=== PATIENT | female | born 1940 | race Caucasian/White ===

== ENCOUNTER 2017-01-29 11:54 | Emergency (ER) | payer OTHER ==
[~2017-01-29] VITALS: Ht 149.9 cm; Wt 59.0 kg
[~2017-01-29 11:54] MED LIST: ALAW0.02 EACH EYE; ASPI325T PO; ATOR40TA PO; CALTTAB PO; CARV6.25 PO; CETI10 PO; DICL1GEL TOP; FERR324T4 PO; FLUT1SPR9 EACH NARE; HYDR-3533 PO; LISI-363 PO; METH5TAB4 PO; NEXI20CA PO; POLY119S PO; RIVA20 PO
[2017-01-29 11:55] VITALS: BP 180/80; PULSE 89; RESP 16; TEMP 97.9; O2SAT 95
[2017-01-29] MEDS ORDERED: LISI-515 PO (14:19)
[2017-01-29] MEDS ORDERED: METH5 PO (14:19)
[2017-01-29] MEDS ORDERED: ATOR40TA16 PO (14:19)
[2017-01-29] MEDS ORDERED: CARV6.25 PO (14:19)
[2017-01-29] MEDS ORDERED: ASPI325T PO (14:19)
[2017-01-29] MEDS ORDERED: XARE20TA PO (14:19)
[2017-01-29] MEDS ORDERED: NEXI20CA PO (14:19)
[2017-01-29] MEDS ORDERED: NORC5TAB PO (14:19)
[2017-01-29] MEDS ORDERED: ALEN35TA24 PO (14:19)
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
[2017-01-29] MEDS ORDERED: ACETAMINOPHEN 325 MG TAB PO ONE (15:45)
[2017-01-29] MEDS ORDERED: IBUP-232 PO (15:58)
[2017-01-29 16:19] VITALS: BP 162/74
== END 2017-01-29 16:21 | disposition home or self-care (01) ==
LOC: NEPD 11:54
DX: S13.4XXA Sprain of ligaments of cervical spine, initial encounter (principal); S43.401A Unspecified sprain of right shoulder joint, initial encounter; M54.2 Cervicalgia; I10 Essential (primary) hypertension; V49.59XA Passenger injured in collision with other motor vehicles in traffic accident, initial encounter; Z79.01 Long term (current) use of anticoagulants
CPT/HCPCS: 70450; 72125; 73030; 99284; L0150

== ENCOUNTER 2017-07-22 12:22 | Emergency (ER) | payer OTHER ==
[~2017-07-22] VITALS: Ht 124.5 cm; Wt 56.5 kg
[~2017-07-22 12:22] MED LIST changes: -ALAW0.02 EACH EYE; +ALEN35TA24 PO; +ASPI-183 PO; -ASPI325T PO; -ATOR40TA PO; +ATOR40TA16 PO; -CALTTAB PO; -CETI10 PO; -DICL1GEL TOP; -FERR324T4 PO; -FLUT1SPR9 EACH NARE; -HYDR-3533 PO; +IBUP-232 PO; -LISI-363 PO; +LISI-515 PO; +METH5 PO; -METH5TAB4 PO; +NORC5TAB PO; -POLY119S PO; -RIVA20 PO; +XARE20TA PO
[2017-07-22 12:25] VITALS: BP 163/94; PULSE 89; RESP 22; TEMP 97.5; O2SAT 97
[2017-07-22] MEDS ORDERED: AZIT250T3 PO (13:00)
[2017-07-22] MEDS ORDERED: BENZ100 PO (13:00)
--- NOTE | 2017-07-22 13:02 | PD ---
HPI Chief Complaint: Cold / Flu Symptoms Time Seen by Provider: 12:55 Travel History International Travel<30 days: No Contact w/Intl Traveler<30days: No Traveled to known affect area: No History of Present Illness HPI 76-year-old female presents for evaluation of a cough. Symptoms started 2 weeks ago. The cough is nonproductive. She denies fevers, chills, chest pain, shortness of breath, nausea or vomiting, abdominal pain, diarrhea or constipation. She reports that her has had similar symptoms. Her primary care physician is Dr. Mcgill. She has no other complaints at this time. PFSH Past Medical History Hx Anticoagulant Therapy: Yes (XARELTO) Blood Disorders: No Heart Rhythm Problems: No Cancer: No Cardiovascular Problems: Yes High Cholesterol: Yes Chemotherapy: No Chest Pain: Yes Congestive Heart Failure: No Coronary Artery Disease: Yes Diabetes: No Deep Vein Thrombosis: Yes Endocrine: No Gastrointestinal Disorders: No Genitourinary: No Hypertension: Yes Immune Disorder: No Implanted Vascular Access Dvce: No Psychiatric: No Reproductive: No Respiratory: No Myocardial Infarction: Yes Radiation Therapy: No Thyroid Disease: No Tubal Ligation: Yes Past Surgical History Appendectomy: Yes Cardiac Surgery: Yes (CABG) Coronary Artery Bypass Graft: Yes Gynecologic Surgery: Yes (ovarian cyst removed) Other Surgery: Yes (gynecological) Social History Alcohol Use: No Tobacco Use: No Substance Use: No Allergies-Medications (Allergen,Severity, Reaction): Coded Allergies: No Known Allergies (Unverified , 01/29/17) Reported Meds & Prescriptions Reported Meds & Active Scripts Active Tessalon Perles (Benzonatate) 100 Mg Cap 100 Mg PO TID PRN Azithromycin 250 Mg Tab 250 Mg PO DIRECTED Take 2 tabs (500 mg) on day 1 then 1 tab daily x 4 days. Ibuprofen 600 Mg Tab 600 Mg PO Q6H PRN Reported Aspirin 325 Mg Tab 325 Mg PO DAILY Nexium (Esomeprazole DR) 20 Mg Capdr 20 Mg PO DAILY Atorvastatin (Atorvastatin Calcium) 40 Mg Tab 40 Mg PO HS Alendronate (Alendronate Sodium) 35 Mg Tab 35 Mg PO WEEKLY Tapazole (Methimazole) 5 Mg Tab 5 Mg PO DAILY Xarelto (Rivaroxaban) 20 Mg Tab 20 Mg PO DAILY [place] (Hydrocodone-Acetaminophen) 5-325 mg Tab 1 Tab PO TID Lisinopril 20 Mg Tab 20 Mg PO DAILY Coreg (Carvedilol) 6.25 Mg Tab 6.25 Mg PO BID Review of Systems Except as stated in HPI: all other systems reviewed are Neg Physical Exam Narrative GENERAL: Well-developed well-nourished female no acute distress SKIN: Warm and dry. HEAD: Atraumatic. Normocephalic. EYES: Pupils equal and round. No scleral icterus. No injection or drainage. ENT: No nasal bleeding or discharge. Mucous membranes pink and moist. NECK: Trachea midline. No JVD. CARDIOVASCULAR: Regular rate and rhythm. No murmur appreciated. RESPIRATORY: No accessory muscle use. Clear to auscultation. Breath sounds equal bilaterally. GASTROINTESTINAL: Abdomen soft, non-tender, nondistended. Hepatic and splenic margins not palpable. Data Data Last Documented VS Vital Signs Date Time Temp Pulse Resp B/P (MAP) Pulse Ox O2 Delivery O2 Flow Rate FiO2 07/22/17 12:58 94 07/22/17 12:25 97.5 89 22 163/94 (117) [facility] Medical Decision Making Medical Screen Exam Complete: Yes Emergency Medical Condition: Yes Medical Record Reviewed: Yes Differential Diagnosis Bronchitis, pneumonia, GERD, medication side effect, esophagitis Narrative Course 76-year-old female with cough for 2 weeks, her has similar symptoms. She appears well. Her lungs are clear to auscultation. The patient will be treated with azithromycin and Tessalon. Diagnosis Primary Impression: Bronchitis Additional Instructions: Medication as prescribed. Stay well hydrated and well-nourished. Return for any emergent medical conditions. Med/Other Pt SpecificInfo: Prescription(s) given Scripts Benzonatate (Tessalon Perles) 100 Mg Cap 100 MG PO TID Y for COUGH, #30 CAP 0 Refills Prov: Gordo Castillo MD 07/22/17 Azithromycin (Azithromycin) 250 Mg Tab 250 MG PO DIRECTED for Infection, #6 TAB 0 Refills Take 2 tabs (500 mg) on day 1 then 1 tab daily x 4 days. Prov: Gordo Castillo MD 07/22/17 Disposition: 01 DISCHARGE HOME Condition: Stable Hector Jensen Jul 22, 2017 13:02
[2017-07-22 13:27] VITALS: BP 124/71
== END 2017-07-22 13:32 | disposition home or self-care (01) ==
LOC: NEPD 12:22
DX: J40 Bronchitis, not specified as acute or chronic (principal); E78.00 Pure hypercholesterolemia, unspecified; I25.10 Atherosclerotic heart disease of native coronary artery without angina pectoris; I10 Essential (primary) hypertension; I25.2 Old myocardial infarction; Z79.82 Long term (current) use of aspirin; Z86.718 Personal history of other venous thrombosis and embolism; Z79.899 Other long term (current) drug therapy
CPT/HCPCS: 99283